=== PATIENT | female | born 1995 | race African-American/Black ===

== ENCOUNTER 2020-11-07 01:42 | Inpatient (IN) ==
[2020-11-07 02:10] LABS: Bilirubin,Urine Negative (Negative); Blood, Urine Small mg/dL (Negative); Glucose,Urine (UA) Negative (Negative); Ketones,Urine Negative (Negative); Mucus,Urine Occasional /LPF (Occasional); Nitrite,Urine Negative (Negative); Protein,Urine Negative; RBC,Urine 1 /HPF (0-4); Squamous Epithelial Cell,Urine Occasional /HPF (0-10); Urine Appearance CLEAR (Clear); Urine Color Straw (Yellow); Urine Specific Gravity 1.003 (1.001-1.035); Urine Urobilinogen < 2.0 EU/DL (0.2-1.0); WBC,Urine 1 /HPF (0-6)
[2020-11-07] MEDS ORDERED: ONDANSETRON 4 MG/2 ML VIAL IV PRN ×2 (03:03→11:02)
[2020-11-07] MEDS ORDERED: MEPERIDINE 50 MG/1 ML VIAL IV PRN (03:03)
[2020-11-07 03:27] LABS: Basophils % 0.2 % (0.0-0.8); Eosinophils # 0.1 10*3/uL (0.0-0.87); Eosinophils % 0.9 % (0.00-10.9); Hematocrit 35.3 VOL% (35.7-47.0); Hemoglobin 11.1 GM/DL (12.0-16.0); Immature Granulocytes % 1.2 %; Immature Granulocytes Absolute 0.14 #; Lymphocytes # 2.4 10*3/uL (1.4-4.0); Lymphocytes % 20.5 % (21.3-54.2); Mean Corpuscular HGB Conc 31.4 GM/DL (32-36); Mean Corpuscular Volume 85.1 FL (87-102); Mean Platelet Volume 10.5 FL (9.6-12.0); Monocytes % 6.9 % (1.7-12.7); Neutrophils % 70.3 % (38.7-73.9); Platelet Count 262 T/CUMM (130-400); Red Blood Count 4.15 MC/CUMM (3.8-5.5); Red Cell Distribution Width 14.2 % (9.3-17.3); White Blood Count 11.6 T/CUMM (4-12)
[2020-11-07] MEDS: LACTATED RINGERS 1,000 ML IV SCH ×2 (03:34→11:20)
[2020-11-07 03:59] LABS: Alanine Aminotransferase 11 U/L (13-56); Albumin 2.6 G/DL (3.4-5.0); Alkaline Phosphatase 159 U/L (45-117); Aspartate Amino Transferase 17 U/L (0-37); Bilirubin,Total < 0.39 MG/DL (0.2-1.0); Blood Urea Nitrogen 6 MG/DL (7-18); Calcium 8.9 MG/DL (8.5-10.1); Carbon Dioxide 27 MMOL/L (21-32); Estimated Glom Filtration Rate 181 ML/MIN; Glucose 80 MG/DL (74-106); Osmolality,Calculated 273.5 MOS/KG (273-304); Potassium 3.7 MMOL/L (3.5-5.1); Sodium 139 MMOL/L (136-145); Total Protein 6.8 G/DL (6.4-8.2)
[2020-11-07] MEDS: OXYTOCIN/LR 20 UNIT/1,000 ML BAG IV SCH ×2 (04:59→14:50)
[2020-11-07] MEDS ORDERED: AMPICILLIN INJ 2,000 MG in SODIUM CHLORIDE 0.9% 100 ML IV ONE (05:00)
[2020-11-07] MEDS: BUTORPHANOL 2 MG/ML VIAL IV PRN ×2 (05:01→09:27)
[2020-11-07 07:19] LABS: RPR Confirm - Less than 1 yr NONREACTIVE (Nonreactive)
[2020-11-07] MEDS ORDERED: AMPICILLIN 1,000 MG VIAL IM SCH (09:00)
[2020-11-07] MEDS ORDERED: SODIUM CHLORIDE 0.9% 100 ML IV ONE (09:25)
[2020-11-07] MEDS ORDERED: AMPICILLIN 1,000 MG VIAL IV SCH (09:31)
[2020-11-07] MEDS: AMPICILLIN INJ 1,000 MG in SODIUM CHLORIDE 0.9% 100 ML IV SCH ×2 (09:35→14:53)
[2020-11-07] MEDS ORDERED: PROMETHAZINE 25 MG/1 ML VIAL IM ONE (11:02)
[2020-11-07] MEDS ORDERED: ePHEDrine 50 MG/ML VIAL IV PRN (11:02)
[2020-11-07] MEDS ORDERED: NALOXONE 0.4 MG/ML VIAL IV PRN (11:02)
[2020-11-07] MEDS ORDERED: diphenhydrAMINE 50 MG/1 ML VIAL IV PRN ×2 (11:02)
[2020-11-07] MEDS ORDERED: hydrOXYzine HCL 25 MG/1 ML VIAL IM PRN (11:02)
[2020-11-07] MEDS ORDERED: FAMOTIDINE 20 MG/2 ML VIAL IV ONE ×2 (11:06→11:08)
[2020-11-07] MEDS ORDERED: CITRIC ACID/SODIUM CITRATE 30 ML UDCUP PO ONE (11:06)
[2020-11-07] MEDS ORDERED: CITRIC ACID/SODIUM CITRATE 30 ML UDCUP ONE (11:07)
[2020-11-07] MEDS ORDERED: ePHEDrine 50 MG/ML VIAL ONE (11:08)
[2020-11-07] MEDS ORDERED: fentaNYL 2 MCG/ROPIV 0.2% EPID 100 ML EPIDURAL SCH (11:30)
[2020-11-07] MEDS ORDERED: miSOPROStoL 200 MCG TABLET ONE (13:10)
[2020-11-07] MEDS ORDERED: METHYLERGONOVINE 0.2 MG/1 ML AMP ONE (13:10)
[2020-11-07] MEDS ORDERED: OXYTOCIN/LR 20 UNIT/1,000 ML BAG IV ONE (13:10)
[2020-11-07] MEDS ORDERED: TRANEXAMIC ACID 1,000 MG/10 ML VIAL ONE (13:10)
[2020-11-07 14:15] LABS: Cord Arterial Blood HCO3 19.4 MMOL/L
[2020-11-07 14:18] LABS: Cord Venous Blood PCO2 48.8 MMHG; Cord Venous Blood PO2 30.6 MMHG
[2020-11-07] MEDS ORDERED: LANOLIN 50% CREAM 0.3 OZ TUBE TOP PRN (17:12)
[2020-11-07] MEDS ORDERED: MEASLES/MUMPS/RUBELLA VACCINE 0.5 ML VIAL SUBCUT ONE (17:12)
[2020-11-07] MEDS ORDERED: RHO(D) IMMUNE GLOBULIN 300 MCG SYRINGE IM ONE (17:12)
[2020-11-07] MEDS ORDERED: WITCH HAZEL PADS 100/JAR TOP PRN (17:12)
[2020-11-07] MEDS ORDERED: DIPH/TET/ACEL PERT BOOSTER VACCINE 0.5 ML VIAL IM ONE (17:12)
[2020-11-07] MEDS ORDERED: BISACODYL 10 MG SUPP RECTAL PRN (17:12)
[2020-11-07] MEDS ORDERED: BENZOCAINE 20%/MENTHOL 0.5% SPRAY 56 GM CAN TOP PRN (17:12)
[2020-11-07] MEDS ORDERED: oxyCODONE/ACETAMINOPHEN 5-325 MG TABLET PO PRN (17:12)
[2020-11-07] MEDS ORDERED: HYDROCORTISONE 2.5% RECTAL CREAM 30 GM TUBE TOP PRN (17:12)
[2020-11-07] MEDS ORDERED: ACETAMINOPHEN 325 MG TABLET PO PRN (17:12)
[2020-11-07] MEDS: DOCUSATE SODIUM 100 MG CAPSULE PO SCH (20:23)
[2020-11-07] MEDS: oxyCODONE/ACETAMINOPHEN 5-325 MG TABLET PO PRN (20:23)
[2020-11-08] MEDS: oxyCODONE/ACETAMINOPHEN 5-325 MG TABLET PO PRN (03:54)
[2020-11-08 05:49] LABS: Basophils % 0.2 % (0.0-0.8); Eosinophils # 0.2 10*3/uL (0.0-0.87); Eosinophils % 1.2 % (0.00-10.9); Hematocrit 30.6 VOL% (35.7-47.0); Hemoglobin 9.8 GM/DL (12.0-16.0); Immature Granulocytes % 0.7 %; Immature Granulocytes Absolute 0.09 #; Lymphocytes # 2.5 10*3/uL (1.4-4.0); Lymphocytes % 20.5 % (21.3-54.2); Mean Corpuscular Volume 83.2 FL (87-102); Mean Platelet Volume 10.9 FL (9.6-12.0); Monocytes % 5.4 % (1.7-12.7); Platelet Count 218 T/CUMM (130-400); Red Blood Count 3.68 MC/CUMM (3.8-5.5); Red Cell Distribution Width 14.3 % (9.3-17.3); White Blood Count 12.2 T/CUMM (4-12)
[2020-11-08] MEDS: DOCUSATE SODIUM 100 MG CAPSULE PO SCH ×2 (09:56→21:05)
[2020-11-08] MEDS: IBUPROFEN 800 MG TABLET PO PRN ×2 (16:37→23:38)
[2020-11-09 08:17] VITALS: BP 113/70
[2020-11-09] MEDS: DOCUSATE SODIUM 100 MG CAPSULE PO SCH (08:26)
[2020-11-09] MEDS ORDERED: FERROUS SULFATE 325 MG TABLET PO SCH (09:00)
== END 2020-11-09 11:45 | disposition home or self-care (01) | DRG 560 ==
LOC: N.LDOUT 01:42 → N.LD 01:44 → N.OB 17:08
PROVIDERS: ADMIT Obstetrics & Gynecology; ATTEND Obstetrics & Gynecology